=== PATIENT | male | born 1940 | race Caucasian/White ===

== ENCOUNTER 2025-04-19 21:07 | Inpatient (IN) | payer MEDICARE, BC, SELFPAY ==
[2025-04-19 19:02] VITALS: BP 156/61
[2025-04-19 19:34] LABS: Hematocrit 25.6 % (39.0-52.0); Hemoglobin 8.2 g/dL (13.0-18.0); Mean Corp Hgb Conc. 32.0 g/dL (33.0-37.0); Mean Corpuscular Volume 111.8 fL (80.0-94.0); Nucleated Red Blood Cells % 0.3 % (-); Platelet Count 298 10^3/uL (130-400); Red Cell Dist. Width 23.2 % (11.5-14.5)
[2025-04-19 19:36] LABS: ALT (SGPT) 12 U/L (0-50); AST (SGOT) 19 U/L (17-59); Albumin 4.4 g/dl (3.5-5.0); Alkaline Phosphatase 40 U/L (38-126); Blood Urea Nitrogen 54 mg/dl (9-20); Calcium 8.9 mg/dl (8.4-10.2); Carbon Dioxide 18 mmol/L (22-30); Chloride 115 mmol/L (98-107); Glucose 104 mg/dl (70-99); Potassium 4.7 mmol/L (3.5-5.1); Sodium 142 mmol/L (135-145); Total Protein 6.5 g/dl (6.3-8.2); eGFR 36.43
[2025-04-19 19:43] LABS: Anisocytosis 1+; Normal RBC Morphology No
[2025-04-19 19:44] LABS: Macrocytosis 2+; Microcytosis 1+; Ovalocytes 1+
--- NOTE | 2025-04-19 19:52 | ED.GENMED ---
History of Present Illness
General
Chief Complaint: Cardiac Symptoms
Source: patient and records
Exam Limitations: none
Time Seen by Provider: 04/19/25 19:44
Nursing documentation reviewed up to this point in time: agreed with
History of Present Illness
History of Present Illness:
84-year-old male with MDS, dual-chamber pacemaker 1 time lead replacement sent in due to malfunctioning pacemaker he has had some fatigue lower extremity edema, sees Dr. Lew and Dr. Do no fevers no chest pains
Past History
Past History
ED Past Medical History: Arrthythmia and Cancer
ED Past Surgical History: Cardiac
Social History
Tobacco: Non-smoker
Alcohol: Occasional
Drug: None
Personal:
Living: with family
Employment: Retired
Review of Systems
Review of Systems
All Other Systems: Not applicable
Constitutional: Denies fever or fatigue
EENT: Reports no symptoms
Respiratory: Reports no symptoms
Cardiac: Denies chest pain
ABD/GI: Reports no symptoms
: Reports no symptoms
Musculoskeletal: Reports edema and back pain
Skin: Reports no symptoms
Neurological: Reports no symptoms
Hematologic/Lymphatic: Reports no symptoms
Phy Exam
Physical Exam
Physical Exam:
Physical Exam
General: no apparent distress, not acutely ill
Neck: JVD
Heart: Bradycardia
Lungs: Faint crackle
Abdomen: Not tender
Neuro: alert and oriented. no focal neurological deficits
Skin: no rash
Psychiatric: well kept. interactive and cooperative
Extremities: Edema is present
Course
Orders/Labs/Results
Orders:
Orders
04/19/25 19:01
EKG [Electrocardiogram (*1)] Urgent
Reason for Study: Bradycardia / Tachycardia
04/19/25 19:02
EKG- Treatment ONCE
04/19/25 19:08
Complete Blood Count/With Diff Urgent
Comprehensive Metabolic Panel Urgent
Magnesium Urgent
Comment: ADD ON
NT-proBNP Urgent
Comment: ADD ON
Phosphorus Urgent
Comment: ADD ON
04/19/25 19:45
CR Chest - 2 Views Urgent
Comment:
Reason For Exam: waekness
04/19/25 19:52
Add On- LAB Urgent
Tests Added?: pBNP
04/19/25 20:09
Add On- LAB Urgent
Tests Added?: mag, phos
04/19/25 20:43
Admit/Transfer Patient As Directed
Co-Sign Provider:
Level of Care: Inpatient admission
Assign to:: IVU
Physician / Group: Adamaris Villegas
Diagnosis: pacemaker dysfunction, exertional dyspnea, mild BLLE edema
Reason for Hospitalization: pacemaker dysfunction, exertional dyspnea, mild BLLE edema
Expected length of stay greater than two midnights?: Yes
ELOS- Estimated Length of Stay in days: 3
I certify the patient meets the requirements for IP care: Yes
Magnesium Sulfate 4 Gram/100Ml [Magnesium Sulfate] 4 gram in 100 ml IV NOW
04/19/25 20:44
PRN Pain Medication Management As Directed
May give lesser potent ordered pain med per pt: Yes
preference::
Protocol:: Medication orders for pain may be administered in a
manner that supports deferring to patient preference
when the pt is:
- Requesting an ordered lesser potent pain medication.
Least to most potent pain medications are defined
as: acetaminophen < NSAID < tramadol < opioids
(morphine, oxycodone, hydromorphone).
- Requesting a lesser dose of the same medication IF
ORDERED.
- Requesting a less intrusive route of administration
if both routes are prescribed by the provider (PO <
IV).
04/19/25 20:45
Code Status As Directed
Resuscitation Status: Full Code
Abnormal Lab Results
04/19/25
19:08
RBC 2.29 L 10^6/uL
(4.70-6.10)
Hgb 8.2 L g/dL
(13.0-18.0)
Hct 25.6 L %
(39.0-52.0)
MCV 111.8 H fL
(80.0-94.0)
MCH 35.8 H pg
(27.0-31.0)
MCHC 32.0 L g/dL
(33.0-37.0)
RDW 23.2 H %
(11.5-14.5)
MPV 11.4 H fL
(7.4-10.4)
Abs Immat Gran (auto) 0.1 H 10^3/uL
(0-0.05)
Absolute Monos (auto) 0.8 H 10^3/uL
(0.1-0.6)
Immature Gran % 0.6 H %
(0-0.5)
Chloride 115 H mmol/L
(98-107)
Carbon Dioxide 18 L mmol/L
(22-30)
BUN 54 H mg/dl
(9-20)
Creatinine 1.8 H mg/dL
(0.7-1.3)
Glucose 104 H mg/dl
(70-99)
Magnesium 1.5 L mg/dl
(1.6-2.3)
04/19/25 19:08
04/19/25 19:08
Vital Signs
Initial and Last Documented VS:
Initial Vital Signs
Temp Pulse Resp BP Pulse Ox
98.5 F 55 18 156/61 98
04/19/25 19:02 04/19/25 19:02 04/19/25 19:02 04/19/25 19:02 04/19/25 19:02
Last Documented Vital Signs
Temp Pulse Resp BP Pulse Ox
98.5 F 41 18 186/60 98
04/19/25 19:02 04/19/25 22:00 04/19/25 22:00 04/19/25 21:28 04/19/25 21:45
*Radiology
Radiology exam reviewed: preliminary read by ED provider
*Pulse Oximetry
SaO2: 98
Oxygen Mode of Delivery: Room air
Patient hypoxic: no
*EKG
Interpreted by ED Provider?: Yes
Interpretation: abnormal
Comparison EKG: no comparison EKG present
Heart Rate: 50
Rate: bradycardiac
Rhythm: other (Intermittent AV block)
Ischemia: non-specific ST changes
*Senior Client Advisor Interpretation
Rate: bradycardiac
Interpretation: abnormal
Heart Rate: 52
Rhythm: other (Intermittent block)
*Critical Care Note
Total Time (30-74mins, 75-104mins- exclusive of procedures): 15
Data Reviewed
Review of Other/Old Records Reveals: Labs, Operative Reports and Discharge Summary
Source: patient and records
Update Note
Update Note:
815 interrogation report preliminary reviewed high impedance, reviewed with cardiology and hospitalist suspect he is having intermittent heart block, looks like his device is nonfunctioning will be admitted to a monitored bed, transcutaneous
pacemaker pads will be applied, will check chest x-ray and proBNP suspect he might be some heart failure,
ED Attending Note
-
Portions of this chart may have been created with voice recognition software.� Occasional wrong word or��sound alike� substitutions may have occurred due to the inherent limitations of voice recognition software.
Discharge Plan
Departure
Patient Disposition: Admit
Date of Disposition: 04/19/25
Time of Disposition: 20:17
Admit to: IVU
Presentation/result/management discussed w/ accepting MD/DO: Hospitalist
Patient with high blood pressure during this ER visit?: No
Condition: Fair
Covid-19: Not Applicable
Discharge Problem:
MDS (myelodysplastic syndrome), Pacemaker lead fracture, Acute on chronic anemia
Interventions
Interventions:
*Risk Screen - Suicide Last Done: 04/19/25 19:02
*General Assessment Last Done: 04/19/25 19:02
*Neglect/Abuse Screening Last Done: 04/19/25 19:02
*ED- Fall Risk Assessment Last Done: 04/19/25 19:02
*ED COVID-19 Vaccine History Last Done: 04/19/25 19:02
*ED Influenza Vaccine History Last Done: 04/19/25 19:02
*Nursing Disposition Last Done: 04/19/25 22:10
ED- Pulmonary Assessment Last Done: 04/19/25 19:58
ED- Cardiac Assessment Last Done: 04/19/25 19:57
Discharge Date and Time
Discharge Date/Time: 04/19/25 22:14
[2025-04-19 19:55] VITALS: BP 178/58
[2025-04-19 20:00] VITALS: BP 176/60
--- NOTE | 2025-04-19 20:00 | HPS.HSE ---
Addendum entered and electronically signed by Adamaris Villegas MD 04/19/25 21:49:
This is an addendum to H&P written by Dianna Car on 04/19/2025. �Patient seen and examined independently with RESEARCH & ANALYTICS MANAGER.
84-year-old male past medical history of symptomatic sinus bradycardia with intermittent high degree intraventricular block status post dual-chamber permanent pacemaker with Medtronic in 2018 status post atrial lead extraction and reimplantation of
atrial lead in 2020, myelodysplastic syndrome, hypertension, TIA, hemolytic anemia, GERD, former tobacco use, pulmonary nodule, presenting with malfunctioning pacemaker which was subsequently turned off.� �High impedance on interrogation. �
He has been having fatigue and lower extremity edema and shortness of breath with exertion for few weeks. Did receive blood transfusion recently for H� of 7.�
Vital signs show blood pressure to 178/58. �Heart rate 46-55.
EKG appears to show high-grade heart block.
Labs show hemoglobin 8.2 slightly worse than baseline. �Creatinine 1.8. �Bicarb of 18. �Cardiac BNP of 3000. Magnesium 1.5�
Patient with pacemaker dysfunction with bradycardia and high-grade heart block. �Pacemaker was interrogated which showed high impedance. �Pacing 72% of the time. �Cardiology notified and for now recommending ZOLL pads. NPO past midnight for
potential leadless pacemaker tomorrow.�
Patient also with evidence of congestive heart failure. �Chest x-ray pending. 40 IV lasix once.�
JOSE LUIS likely cardiorenal.
Replete magnesium.�
Original Note:
Family Physician
-
Family Physician:
Chief Complaint
-
pacemaker error
History of Present Illness
Patient is a 84-year-old male with past medical history significant for complete heart block with cardiac pace maker who presented to [facility] ED for evaluation at recommendation of cardiology RESEARCH & ANALYTICS MANAGER at [facility]. Patient report monitor for pace maker
alerted cardiology who sent him to [facility] for observation 1.5-2 weeks ago, no interventions at that time. Last week while in [place] pacer alerted again and he was instructed to go to a local hospital. He reported being at hospital with
medtronic rep for approximately 8 hours where they deactivated his pacer. He returned home and spoke with cardiology RESEARCH & ANALYTICS MANAGER today who requested he go to ED for evaluation and intervention to correct issues with pacemaker. Patient reports some mild edema
recently that he has utilized PRN Lasix for. Denies any further symptoms.
Medical History
Past Medical History
Past Medical History: Reports Other
Additional Past Medical History:
complete heart block status post pacemaker
myelodysplastic syndrome diagnosed in 2018 on darbepoetin
Past Surgical History: Reports Other
Additional Past Surgical History:
cardiac pacemaker
Social History
Tobacco: Former Smoker (quit 1983)
Alcohol: Daily (generally will drink 1 small bourbon daily )
Drug: None
Personal:
Living: Alone
Employment: Retired
Family History
Family History: Not pertinent
Allergies / Home Medications
Allergies reflects when Allergies were last updated in [facility].
Home Medications with original date entered in [facility]
Allergy/Medication List:
Allergies
Allergy/AdvReac Type Severity Reaction Status Date / Time
floxacillin Allergy SOB, [place] Verified 04/19/25 19:04
like he
was going
Home Medications
acetaminophen 500 mg tablet (Tylenol Extra Strength) 500 mg PO HSPRN PRN mild pain/sleep 12/11/20
celecoxib 200 mg capsule 200 mg PO DAILYPRN PRN mild pain 12/11/20
cholecalciferol (vitamin D3) 50 mcg (2,000 unit) tablet 2,000 units PO DAILY Supplement 12/11/20
darbepoetin nerissa in polysorbat 500 mcg/mL in polysorbate injection syringe (Aranesp) 500 mcg SC MONTHLY Anemia 12/11/20
furosemide 20 mg tablet 20 mg PO DAILYPRN PRN fluid 12/11/20
rosuvastatin 5 mg tablet 5 mg PO DAILY 12/11/20
zolpidem 10 mg tablet 10 mg PO HS Sleep 12/11/20
lansoprazole 15 mg capsule,delayed release 15 mg PO DAILY 04/19/25
losartan 50 mg tablet 50 mg PO DAILYPRN PRN blood pressure 04/19/25
Review of Systems
-
History Source: Patient
A 12 point ROS was completed and negative except as noted: Yes
Constitutional: Denies Fever or Chills
EENT: Denies Sore Throat
Respiratory: Denies Cough or Trouble Breathing
Cardiac: Denies Chest Pain, Diaphoresis, Palpitations or Syncope
Abdomen/GI: Denies Abdominal Pain, Nausea, Vomiting or Diarrhea
: Denies Dysuria, Frequency or Urgency
Musculoskeletal: Denies Joint Pain
Skin: Denies Rash
Neurological: Denies Dizzy, Headache, Weakness or Numbness
Endocrine: Denies Polyuria or Polydipsia
Hematologic/Lymphatic: Denies Bleeding
Physical Exam
Vital Signs
Vital Signs
Temp Pulse Resp BP Pulse Ox
98.5 F 46 15 178/58 98
04/19/25 19:02 04/19/25 19:55 04/19/25 19:55 04/19/25 19:55 04/19/25 19:55
Physical Exam
General: Well Developed, Well Nourished, No Apparent Distress, Comfortable, Conversant and Obese
HEENT: NormoCephalic, Moist mucous membranes, Atraumatic and Ears Appear Normal
Respiratory: Clear and Non Labored Respirations
Cardiac: S1/S2, Irregular Rhythm, Bradycardia and Peripheral Edema (mild intermittent BLLE edema ); No Murmur, Rub or Gallop
GI: Soft, Non Tender, Non Distended and Normal Bowel Sounds; No Organomegaly
Rectal: Deferred by Provider
Genito-urinary: Deferred by me
Musculoskeletal: No Clubbing and No Cyanosis
Skin: Warm and IV/Catheter Site
Neuro: Awake, AO x 3 and Nonfocal/grossly intact
Hematologic/Lymphatic: No Lymphadenopathy
Psych: Calm
Laboratory Results
-
04/19/25 19:08
04/19/25 19:08
Laboratory Results
Total Bilirubin 0.8 mg/dl (0.2-1.3) 04/19/25 19:08
AST 19 U/L (17-59) 04/19/25 19:08
ALT 12 U/L (0-50) 04/19/25 19:08
Alkaline Phosphatase 40 U/L (38-126) 04/19/25 19:08
Data Reviewed
-
Medical Tests (Nuc Med, Echo, EKG etc): Report Reviewed by me (EKG: appears to be complete heart block )
Lab Data: Labs Reviewed by me (hgb 8.2, hct 25.6, HCO3 18, BUN 54, Creat 1.8, eGFR 36.43, )
Impression/Plan
-
IMPRESSION/PLAN:
#complete heart block
#dysfunctioning pacemaker
EKG: appears to be complete heart block
- Admit to IVU
- Consult Cardiology
- NPO at midnight
#exertional dyspnea and mild edema likely 2/2 heart failure
pBNP 3060
- daily weights
- I & Os
- Lasix 40mg IV 1x now
#CKD?? vs JOSE LUIS? vs. cardiorenal??
HCO3 18, BUN 54, Creat 1.8, eGFR 36.43
- trend BMP
#hypomagnesemia
Mag 1.5
- replete
- trend electrolytes
#MDS
hgb 8.2, hct 25.6
reports recent blood transfusion for hgb 7
- monitor CBC
- continue out patient regimen
Code status: full code
DVT prophylaxis: heparin sq
[2025-04-19 20:30] LABS: Magnesium 1.5 mg/dl (1.6-2.3)
--- NOTE | 2025-04-19 20:52 | CON.CAR ---
Medical History
-
History of Present Illness:
84-year-old male with a history of Medtronic pacemaker implant 2018 for second-degree AV block, RA lead extraction and reimplantation 12/17/2020, PAF (per outpatient notes ow burden asymptomatic PAF and patient declined anticoagulation)
Hypercholesterolemia and GERD. Patient sent to [facility] as directed by Dr. Lew's office due concern regarding RV lead fracture and malfunction.. RV lead noted to have high impedance and felt not to be reliable. Patient with history
of intermittent pacer dependency. Patient was noted to have problems with his RV lead and high impedance as far back as 04/10/2025. He actually went to the ER and had a full interrogation at that time. Pacemaker seems to be capturing normally at
that time but it was recommended that RV lead be replaced and it was recommended that patient stay in the hospital but he left AGAINST MEDICAL ADVICE because he wanted to go to [place]. Patient ended up going to [place] and then was directed to go to
the ER based on interrogation he was evaluated there and then actually sent home. Then today again he was contacted by gisela Salguero office and directed to go to the ER. In the ER patient heart rates have been in the 40s and he is denying having
symptoms. He denies having syncope or near syncope denies chest pain or increased shortness of breath he has chronic lower extremity edema which he sometimes thinks is a little bit more. However he has not been weighing himself. He sometimes
feels fatigue but he says it is not all the time. Of note he has a history of myelodysplastic syndrome and recently had to have a transfusion when his hemoglobin was less than 7. He has had no bleeding issues. No recent infection or fever.
Patient has a history of conduction disease, symptomatic bradycardia related to heart block including previous history of Mobitz 1 secondary AV block. Patient had a Medtronic dual-chamber pacemaker. There was issue with RA lead fracture the
patient underwent extraction and reimplantation 12/17/2020
Review of remote interrogation 04/10/2025 abnormal functions with RV lead oversensing and intermittent RV loss of capture RV lead high impedance 3000 ohm
Past Medical History
Past Medical History: Other (Past medical history Medtronic pacemaker 2018 Fractured right atrial lead. Extraction RA lead and implantation of new lead. 12/17/2020 History of symptomatic bradycardia intermittent high degree AV block Anemia
Myelodysplastic syndrome)
Social History
Tobacco: Non-Smoker
Family History
Family History: Reviewed & Not Pertinent
Allergies / Home Medications
Allergy/AdvReac Type Severity Reaction Status Date / Time
floxacillin Allergy SOB, [place] Verified 04/19/25 19:04
like he
was going
�Medication �Instructions �Recorded �Confirmed �Type
acetaminophen 500 mg tablet 500 mg PO HSPRN PRN mild pain/sleep 12/11/20 04/19/25 History
(Tylenol Extra Strength)
celecoxib 200 mg capsule 200 mg PO DAILYPRN PRN mild pain 12/11/20 04/19/25 History
cholecalciferol (vitamin D3) 50 2,000 units PO DAILY Supplement 12/11/20 04/19/25 History
mcg (2,000 unit) tablet
darbepoetin nerissa in polysorbat 500 500 mcg SC MONTHLY Anemia 12/11/20 04/19/25 History
mcg/mL in polysorbate injection
syringe (Aranesp)
furosemide 20 mg tablet 20 mg PO DAILYPRN PRN fluid 12/11/20 04/19/25 History
rosuvastatin 5 mg tablet 5 mg PO DAILY 12/11/20 04/19/25 History
zolpidem 10 mg tablet 10 mg PO HS Sleep 12/11/20 04/19/25 History
lansoprazole 15 mg capsule,delayed 15 mg PO DAILY 04/19/25 04/19/25 History
release
losartan 50 mg tablet 50 mg PO DAILYPRN PRN blood 04/19/25 04/19/25 History
pressure
Review of Systems
-
All other systems: Negative unless noted
Physical Exam
Vital Signs
Temp Pulse Resp BP Pulse Ox
98.5 F 46 15 178/58 98
04/19/25 19:02 04/19/25 19:55 04/19/25 19:55 04/19/25 19:55 04/19/25 19:55
Lab Results
04/19/25 19:08
04/19/25 19:08
Gyr-V-Rukwqunixhr Pept 3060 pg/ml 04/19/25 19:08
Physical Exam
General: Well Developed and Well Nourished
HEENT: Normocephalic and Anicteric
Respiratory: Other (No wheezes rales or rhonchi)
Cardiac: Regular Rhythm
GI: Soft, Non Tender, Non Distended, Normal Bowel Sounds and Other (No masses)
Musculoskeletal: No Clubbing, No Cyanosis and No Edema (Moderate bilateral pitting edema of the lower extremities)
Skin: Warm
Neuro: Awake, Alert and Oriented
Psych: Calm
Impression / Plan
-
.
Pacemaker lead malfunction. RV lead fracture's is suspected . RV lead with high impedance and intermittent over sensing and loss of capture. Appears to have junctional escape rhythm. Underlying sinus rhythm with periods of CHB and intermittent
noncapture of RV lead. No long pauses and no symptoms reported. Based on interrogation history patient's had issues with the RV lead dating back to 04/06/2025.
- Monitor on telemetry.
- EP to evaluate regarding pacemaker revision. Possible implantation of leadless pacemaker.
- No clear need for temporary pacing at this time. But will continue to monitor closely.
- echo in AM
.
PAF. Low burden A-fib based on history. Patient has opted not to be on anticoagulation.
- Currently appears to be in sinus
.
JOSE LUIS. Previous admissions creatinines ranged from 1.2-1.5. Last labs are from 2020. Currently 1.8. Will monitor.
.
Anemia. MDS.. hb 8.2 Continue to monitor. Management as directed by primary team
.
Edema. Acute on chronic. Patient has a creatinine of 1.8. Unclear how this relates to his baseline. A bit higher than it was back in 2020. Patient may have component of heart failure related to combination of CKD
- IV lasix
Data Reviewed
-
EKG: Report Reviewed by me
Radiology: Report Reviewed by me
Medical Tests (Nuc Med, Echo etc): Report Reviewed by me
Labs: Discussed with Physician
[2025-04-19 21:28] VITALS: BP 186/60
[2025-04-19] MEDS: MAGNESIUM SULFATE 100 IV (21:49)
[2025-04-19 22:42] VITALS: BMI 32.1
[2025-04-19 22:54] VITALS: BP 178/53
[2025-04-19] MEDS: TYLENOL 650 MG PO (23:00)
[2025-04-19] MEDS: LASIX 40 MG IV (23:00)
[2025-04-19] MEDS: AMBIEN 10 MG PO (23:34)
[2025-04-19] MEDS: HEPARIN 5000 UNITS SC (23:34)
[2025-04-19 23:36] VITALS: BP 157/51
[2025-04-20] VITALS (15 sets, daily range): BP systolic 120–192; BP diastolic 38–98; BMI 31.6
--- NOTE | 2025-04-20 00:31 | PTCARENOTE ---
Received patient from ED via stretcher into room 2241. Pt has personal cane, and ambulated to bed w/ standby assist. SOB w/ exertion, denies any dizziness. Tele monitor applied, pacer not capturing at times. Rhythm either complete block vs A/AVpaced
w/ underlining SR. HR in the 30-70's at rest. Strips placed in chart. Patient c/o headache pain, Tylenol 650 mg administered at 23:00. Patient instructed to remain NPO at midnight. Oriented to room, call moore within reach. Patient brought in home
meds, medication list completed and sent to pharmacy.
[2025-04-20 03:22] LABS: Hematocrit 24.3 % (39.0-52.0); Hemoglobin 7.9 g/dL (13.0-18.0); Mean Corp Hgb Conc. 32.5 g/dL (33.0-37.0); Mean Corpuscular Volume 110.0 fL (80.0-94.0); Platelet Count 291 10^3/uL (130-400); Red Cell Dist. Width 22.9 % (11.5-14.5)
[2025-04-20 03:41] LABS: Blood Urea Nitrogen 52 mg/dl (9-20); Calcium 8.9 mg/dl (8.4-10.2); Carbon Dioxide 18 mmol/L (22-30); Chloride 115 mmol/L (98-107); Estimated Creatinine Clearance 33 ml/min; Glucose 94 mg/dl (70-99); Magnesium 2.5 mg/dl (1.6-2.3); Potassium 4.3 mmol/L (3.5-5.1); Sodium 143 mmol/L (135-145); eGFR 36.43
--- NOTE | 2025-04-20 07:57 | W.PN.CD ---
Today's Communication / Plan
-
HRs in the 40s . No long pauses. No new symptoms.
Patient to be evaluated by EP today ( Dr Espinoza or Dr Smith) to coordinate treatment plan for pacing system. Possible micra.
Continue with lasix and monitor weight and renal function
anemia to be addressed by primary team . Patient with MDS. Hb 7.9. Consider PRBC
Impression / Plan
-
.
Pacemaker lead malfunction. RV lead fracture's is suspected . RV lead with high impedance and intermittent over sensing and loss of capture. Appears to have junctional escape rhythm. Underlying sinus rhythm with periods of CHB and noncapture of
RV lead. No long pauses and no symptoms reported. Based on interrogation history patient's had issues with the RV lead dating back to 04/06/2025.
- Monitor on telemetry.
- EP to evaluate regarding pacemaker revision. Possible implantation of leadless pacemaker.
- No clear need for temporary pacing at this time. But will continue to monitor closely.
- echo in AM
.
PAF. Low burden A-fib based on history. Patient has opted not to be on anticoagulation.
- Currently appears to be on anticoagulation
.
JOSE LUIS. Previous admissions creatinines ranged from 1.2-1.5. Last labs are from 2020. Currently 1.8. Will monitor.
.
Anemia. MDS.. hb 8.2 on admit and now 7.9. Consider PRBC.
- Management as directed by primary team.
.
Edema. Acute on chronic. Patient has a creatinine of 1.8. Unclear how this relates to his baseline. A bit higher than it was back in 2020. Patient may have component of heart failure related to combination of CKD and chnage in rhythm
- IV lasix
- moniator weight and renal function
Physical Exam
Vital Signs/Labs
Vital Signs
Temp Pulse Resp BP Pulse Ox
98 F 43 20 135/38 94
04/20/25 06:49 04/20/25 07:00 04/20/25 06:49 04/20/25 06:49 04/20/25 06:49
04/19/25 04/20/25 04/21/25
06:59 06:59 06:59
Actual Weight 92.8 kg
04/20/25 03:00
04/20/25 03:00
Magnesium 2.5 mg/dl (1.6-2.3) H 04/20/25 03:00
04/19/25
19:08
Lch-U-Rlhjeilaevn Pept 3060
Physical Exam
Constitutional: No acute distress
Cardiovascular: Rhythm & rate is regular
Respiratory: Wheeze Absent and Rhonchi Absent
GI: Soft
Other: Other
moderate bilat edema
Data Reviewed
-
Date of Service: April 20, 2025
Medical Decision Making: Reviewed Test Results
Medical Tests (PFT, Pathology etc): Report Reviewed by me
Labs: Labs Reviewed by me
--- NOTE | 2025-04-20 08:00 | W.PN.UPDATE ---
Addendum entered and electronically signed by Basilio Espinoza MD 04/20/25 12:06:
Reviewed interrogation demonstrating noncapture in the right ventricular lead and the patient has complete heart block. I discussed with patient and his well with the son by phone plan for Micra implantation later today. I will plan to place a
temporary pacing wire given his AV conduction disease. I described the procedure in detail to both patient and son by phone including risks benefits and treatment alternatives. Will plan to stage the generator removal likely tomorrow.
Original Note:
Update Note
Progress Note Update
Patient seen at bedside with telemetry demonstrating sinus rhythm and a junctional escape rhythm. Atrial and ventricular pacing spikes are noted on telemetry without clear capture and inappropriate sensing is also noted. We will interrogate the
patient's device this morning to assess lead parameters and the current moment and plan a leadless pacemaker likely later this afternoon.
Will communicate with primary cardiology team.
Will interrogate the device this morning.
Please maintain n.p.o. status except sips of water and meds
Will follow closely with you
[2025-04-20] MEDS: CRESTOR 5 MG PO (08:31)
[2025-04-20] MEDS: PROTONIX 40 MG PO (08:31)
[2025-04-20] MEDS: HEPARIN SC ×3 (09:44→22:36)
--- NOTE | 2025-04-20 10:57 | CM ---
spoke to pt in room, he is prev indep, lives alone in a split level home with 2 steps to enter. he has a cane he uses. plan is for dc to home when medically stable.
--- NOTE | 2025-04-20 11:43 | W.PN.HOSP.TC ---
Today's Communication/Plan
-
For pacemaker implantation
Assessment / Plan
Assessment / Plan
Impression:
Pacemaker lead malfunction.
Conditions prior to admission:
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 Prior history of lead extraction.
Paroxysmal A-fib.
MDS with transfusion dependent anemia. According to patient not responsive to Reblozyl
CKD 3B
Chronic lower extremity edema with intermittent furosemide administration
Plan:
Schedule for leadless pacemaker implantation
Continue telemetry monitoring
Chronic lower extremity edema
Echo 12/31 with LVEF 55-60%. No significant valvular abnormalities.
Status post single dose of furosemide provided on admission per
Monitor volume status and renal function closely
MDS with transfusion dependent anemia
On on erythroid maturation agent STEAM PLANT OPERATOR with no significant improvement
Recent declining hemoglobin down to 7 requiring PRBC transfusion.
Continue monitoring closely
CKD stage IIIb.
Follow renal function after furosemide.
Patient reports intermittent losartan administration for limited BP. Currently off.
Anticipated Discharge: 24 - 48 hours
Subjective/Interval History
-
Date of Service: April 20, 2025
Objective Data
-
Labs:
Laboratory Results
04/20/25
03:00
WBC 10.1
Hgb 7.9 L
Hct 24.3 L
Plt Count 291
Sodium 143
Potassium 4.3
Chloride 115 H
Carbon Dioxide 18 L
BUN 52 H
Creatinine 1.8 H
Glucose 94
Calcium 8.9
Vital Signs:
Vital Signs
Temp Pulse Resp BP Pulse Ox
98 F 43 20 135/38 94
04/20/25 06:49 04/20/25 07:00 04/20/25 06:49 04/20/25 06:49 04/20/25 08:54
I&O
04/19/25 04/20/2504/21/25
06:59 06:59 06:59
Intake Total 340 / 340
Output Total 1375 / 1375
Balance -1035 / -1035
Physical Exam
-
General: Well Developed and No Apparent Distress
HEENT: Normocephalic, Atraumatic and Moist Mucous Membranes
Respiratory: Clear to Auscultation
Cardiac: Regular Rhythm and S1/S2; Negative Murmur, Rub or Gallop
GI: Soft, Nontender, Nondistended and Normal Bowel Sounds; Negative Organomegaly
Rectal: Deferred by Provider
Musculoskeletal: No Clubbing, No Cyanosis and No Edema
Skin: Negative Rash
Neuro: Nonfocal/Grossly Intact
--- NOTE | 2025-04-20 16:09 | ITS.CL.PACE ---
[facility] - Pacemaker Implant
Pacemaker Implant
Procedure Report:
Date of Procedure: April 20, 2025
Patient : 1940
Procedure: AV Micra implantation, temporary wire insertion, generator removal
Indication: Underlying complete heart block with RV lead fracture which is nonfunctional and cannot capture
Explant:
Pulse Generator: Medtronic; Model# W1 DR 01; SN: [id number] implanted May 11, 2019
Implant:
Medtronic AV Micra model number MC 2 AVR 1 serial number [id number] implanted today
Existing leads:
RA Lead: Medtronic; Model# 5076; SN: [id number] implanted 2020- The RA lead is functional see below parameters and was left capped and the left deltopectoral pocket
RV Lead: Medtronic; Model# 5076; SN: [id number] implanted 2018-the RV lead is nonfunctional and capped in the left deltopectoral pocket
Technique: A time out was performed. The procedure site was identified. Sedation was administered by the anesthesiology service with conscious sedation. The right and left femoral veins were accessed under direct ultrasound guidance. Both right
and left femoral and iliac systems were extremely tortuous. A quadripolar Divine catheter was placed from the left femoral vein into the RV apex with a threshold less than 1 V at 0.5 ms. This was utilized as a temporary pacemaker in case of
loss of the patient's narrow complex escape. This was removed at the end of the procedure.
We then serially dilated the right femoral vein to allow the 27 Vietnamese delivery sheath access to the right atrium. The right femoral iliac system was extremely tortuous and multiple intravenous dye shots were taken to delineate intravascular course
of the wires and sheaths. Approximately 30 cc of dye was delivered during the procedure. Utilizing elizabet wires at 0.35 diameter and series of short and long dilators up to 22 Vietnamese the isa shows 27 Vietnamese long sheath was able to navigate the
tortuous course and was brought to the right atrium under fluoroscopic guidance. We then brought the inner leadless pacemaker up into the outer sheath and the outer sheath was withdrawn into the IVC. We then navigated the delivery sheath into the
right ventricular apical septum and another intravenous dye shot demonstrated good apposition to the distal RV septum. We then delivered the AV Micra and once acceptable parameters and tug testing demonstrated stability in position and lead
parameters the suture was cut and withdrawn and sheaths and catheters were removed from the right atrium and vasculature. Giiipj-cv-[id number] sutures to bilateral femoral venous access sites and manual pressure was held for 30 minutes to the right
femoral venous access site. The patient did not demonstrate any hemodynamic instability during the procedure.
We then turned our attention to the generator removal. The patient was prepped and draped in the usual fashion. Local anesthetic was applied to the left prepectoral subcutaneous tissue. The chronic 3 inch incision was made 2.5 inches below the
left clavicle. A subcutaneous pocket was created with blunt and sharp dissection and hemostasis controlled with Bovie cautery. The leads were identified and removed from the device and capped in the pocket. The chronic generator was removed from
the field. The pocket was irrigated with antibiotic solution. Of note the right atrial lead is functioning with parameters as below, the right ventricular lead is nonfunctioning. The patient was left with an underlying escape at 35 bpm in terms of
underlying rhythm. Both the atrial and ventricular leads were capped and the left deltopectoral pocket. The incision was closed in 2 layers with absorbable suture. The estimated blood loss was minimal. There were no complications.
Fluoroscopy: 14.7 minutes and 259 mGy
Lead Analysis:
RA lead: P: 2 mV; Threshold: 0.75 V @ 0.5 ms; Impedance: 304 ohms.
RV lead: R: Nonfunctioning
Final Programming: VDD 50-105
Conclusion: Uncomplicated Medtronic AV Micra implant, temporary wire insertion and removal, and removal of dual-chamber pacemaker generator
Recommendation: Routine right and left femoral venous access care and left deltopectoral wound care.
--- NOTE | 2025-04-20 17:02 | W.PN.UPDATE ---
Update Note
Progress Note Update
Please see full EPS report for details of leadless pacemaker implantation and removal of the patient's dual-chamber pacemaker generator. He has appropriate AV synchrony in VDD mode with excellent lead parameters on the leadless pacemaker. We have
ordered groin precautions and serial dosing of antibiotics for his left deltopectoral groove incision and the right and left femoral venous access sites. He received 35 cc of dye so would repeat hemoglobin and creatinine 04/21/25 in the morning and
would consider discharge tomorrow if he remains stable.
Communicated findings of procedure with the patient's son as well as his device team at [facility].
[2025-04-20] MEDS: TYLENOL 650 MG PO ×2 (18:44→23:36)
--- NOTE | 2025-04-20 19:26 | PTCARENOTE ---
Pt returned from EP lab post pacemaker removal from left anterior chest, dressing dry and intact, no sign of bleeding or hematoma. Right femoral vein site with saturated hemostasis pad (not new drainage), left femoral vein site with dry and intact
dressing, no sign of bleeding or hematoma in either groin. Figure of eight sutures present. Pt c/o right groin discomfort, given tylenol and encouraged to splint his groin when coughing. Pt on face mask at 8L on arrival to IVU, now 96% on 2L. Pt
with gurgly productive cough initially, oriented to place only but soon improved. Telemetry shows Vent. paced rhythm.
--- NOTE | 2025-04-20 23:12 | PTCARENOTE ---
Addendum entered by Rebel Dumont RN 04/20/25 23:50:
no signs of oozing from R groin site; dressing CDI. L groin site intact.
Original Note:
removed b/l sutures at approx 2200. patient complains of burning after dressings removed- b/l groins red/appear excoriated. small skin tear at the R groin noted. sat patient up, ate dinner. patient continues to cough-educated patient to apply
pressure on R groin. when rechecking groins- R groin oozing. site marked. checked again and dressing saturated. R groin dressing changed and applied pressure dressing. L groin site stable. + pulses. L chest site CDI. Vpaced on tele. reviewed plan of
care with patient and verbalized understanding. call moore within reach. makes needs known.
[2025-04-20] MEDS: AMBIEN 10 MG PO (23:35)
[2025-04-20] MEDS: ANCEF 5 IV (23:36)
[2025-04-21] VITALS (8 sets, daily range): BP systolic 137–160; BP diastolic 56–69; PULSE 70; BMI 31.5
[2025-04-21 02:58] LABS: Hematocrit 23.6 % (39.0-52.0); Hemoglobin 7.8 g/dL (13.0-18.0); Mean Corp Hgb Conc. 33.1 g/dL (33.0-37.0); Mean Corpuscular Volume 110.3 fL (80.0-94.0); Nucleated Red Blood Cells % 0.4 % (-); Platelet Count 278 10^3/uL (130-400); Red Cell Dist. Width 22.0 % (11.5-14.5)
[2025-04-21 03:45] LABS: Blood Urea Nitrogen 54 mg/dl (9-20); Calcium 8.8 mg/dl (8.4-10.2); Carbon Dioxide 19 mmol/L (22-30); Chloride 113 mmol/L (98-107); Estimated Creatinine Clearance 32 ml/min; Glucose 165 mg/dl (70-99); Magnesium 2.1 mg/dl (1.6-2.3); Potassium 5.0 mmol/L (3.5-5.1); Sodium 141 mmol/L (135-145); eGFR 36.43
[2025-04-21] MEDS: ANCEF 5 IV (06:10)
--- NOTE | 2025-04-21 07:57 | W.PN.CD ---
Addendum entered and electronically signed by Basilio Espinoza MD 04/21/25 10:33:
I met with the patient this morning and discussed details of the procedure last evening. We discussed the Micra implant and the generator removal and appropriate follow-up. He is hemostatic and bilateral femoral venous sites without active
bleeding or hematoma. History of mild dysplastic syndrome with relatively stable hemoglobin.
He should have follow-up with his outpatient french folding machine operator Dr. Basilio Lew at [facility] cardiology and he is followed in the device clinic there. I did communicate findings of procedure to both Dr. Lew and Neelima
Kyra VALLADARES who will be performing outpatient follow-up.
Original Note:
Today's Communication / Plan
-
IV lasix once
Micra appears to be fxning appropriately
cont home meds
We will sign off pls call with questions/concerns. He knows to follow up with home french folding machine operator.
Impression / Plan
-
.
Pacemaker lead malfunction. RV lead fracture's is suspected . RV lead with high impedance and intermittent over sensing and loss of capture. Appears to have junctional escape rhythm. Underlying sinus rhythm with periods of CHB and noncapture of
RV lead. No long pauses and no symptoms reported. Based on interrogation history patient's had issues with the RV lead dating back to 04/06/2025.
- Monitor on telemetry.
- s/p Micra fxning appropriately
- echo in AM
.
PAF. Low burden A-fib based on history. Patient has opted not to be on anticoagulation.
.
JOSE LUIS. Previous admissions creatinines ranged from 1.2-1.5. Last labs are from 2020. Currently 1.8. Will monitor.
.
Anemia. MDS.. hb 8.2 on admit and now 7.9. Consider PRBC.
- Management as directed by primary team.
.
Edema. Acute on chronic. Patient has a creatinine of 1.8. Unclear how this relates to his baseline. A bit higher than it was back in 2020. Patient may have component of heart failure related to combination of CKD and chnage in rhythm
- IV lasix today
- PO PRN
Physical Exam
Vital Signs/Labs
Vital Signs
Temp Pulse Resp BP Pulse Ox
97.3 F 65 20 138/58 96
04/21/25 07:18 04/21/25 06:00 04/21/25 07:18 04/21/25 02:40 04/21/25 07:18
04/20/25 04/21/25 04/22/25
06:59 06:59 06:59
Actual Weight 201 lb 11.567 oz 200 lb 13.458 oz
04/21/25 02:44
04/21/25 02:44
Magnesium 2.1 mg/dl (1.6-2.3) 04/21/25 02:44
04/19/25
19:08
[id number] Pept 3060
Physical Exam
Constitutional: No acute distress and Comfortable
EENT: Anicteric
Cardiovascular: Rhythm & rate is regular and Pedal edema present (trace)
Respiratory: Respiratory effort normal and Lungs clear to auscul.
GI: Soft
Neuro/Psych: AO x 3
Data Reviewed
-
Date of Service: April 21, 2025
EKG: Tracing Personally Visualized and interpreted (paced)
Echo: Report Reviewed by me
Labs: Labs Reviewed by me
[2025-04-21] MEDS: TYLENOL 650 MG PO ×3 (09:16→22:37)
[2025-04-21] MEDS: CRESTOR 5 MG PO (09:16)
[2025-04-21] MEDS: PROTONIX 40 MG PO (09:16)
[2025-04-21] MEDS: HEPARIN 5000 UNITS SC ×2 (09:18→17:51)
[2025-04-21] MEDS: LASIX 40 MG IV (09:36)
--- NOTE | 2025-04-21 11:12 | CM ---
Addendum entered by Ana M Napoles RN 04/21/25 12:11:
Family also set up [facility] to assist patient at discharge and provide 6 hours a day care until VN came come out to see the patient.
Original Note:
Chart reviewed. Patient is independent of ADLS, lives alone in a split level house, [address] MIL[address], has a SPC. Patient is interested in VN. Referral sent to [facility]. Plan is for the patient to return home with [facility]. CM to follow
--- NOTE | 2025-04-21 12:34 | W.DS.TRANS ---
DC Summary - Cnc Grinder
-
Discharge Instructions:
Sleep Apnea Risk High
Discharge Diagnosis/Procedures Micra pacer implant
Driving Restrictions No driving for 24 hours
Instructions:
Stand-Alone Forms: DC Instructions- Cath/EP Lab
Changes to Home Medications: No
Discharge Medications:
DC Medications w/original date entered in [facility]
acetaminophen 500 mg tablet (Tylenol Extra Strength) 500 mg PO HSPRN PRN mild pain/sleep 12/11/20
celecoxib 200 mg capsule 200 mg PO DAILYPRN PRN mild pain 12/11/20
cholecalciferol (vitamin D3) 50 mcg (2,000 unit) tablet 2,000 units PO DAILY Supplement 12/11/20
darbepoetin nerissa in polysorbat 500 mcg/mL in polysorbate injection syringe (Aranesp) 500 mcg SC MONTHLY Anemia 12/11/20
furosemide 20 mg tablet 20 mg PO DAILYPRN PRN fluid 12/11/20
rosuvastatin 5 mg tablet 5 mg PO DAILY High Cholesterol 12/11/20
zolpidem 10 mg tablet 10 mg PO HS Sleep 12/11/20
lansoprazole 15 mg capsule,delayed release 15 mg PO DAILY gerd 04/19/25
losartan 50 mg tablet 50 mg PO DAILYPRN PRN blood pressure 04/19/25
Home Medication Changes
Pending Results: No
--- NOTE | 2025-04-21 15:43 | W.PN.HOSP.TC ---
Today's Communication/Plan
-
Monitor volume status.
PT evaluation.
Discharge planning
Assessment / Plan
Assessment / Plan
Impression:
Pacemaker lead malfunction.
Conditions prior to admission:
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 Prior history of lead extraction.
Paroxysmal A-fib.
MDS with transfusion dependent anemia. According to patient not responsive to Reblozyl
CKD 3B
Chronic lower extremity edema with intermittent furosemide administration
Plan:
Status post leadless pacemaker implantation on 04/20
Chronic lower extremity edema
Echo 12/31 with LVEF 55-60%. No significant valvular abnormalities.
Stable respiratory status with no evidence for decompensated CHF
Additional dose of Lasix provided on admission and on 04/21
Monitor volume status and renal function closely
MDS with transfusion dependent anemia
On on erythroid maturation agent CYBER CRIME INVESTIGATOR with no significant improvement
Recent declining hemoglobin down to 7 requiring PRBC transfusion.
Continue monitoring closely
CKD stage IIIb.
Follow renal function after furosemide.
Patient reports intermittent losartan administration for limited BP. Currently off.
Anticipated Discharge: Within 24 hours
Subjective/Interval History
-
Date of Service: April 21, 2025
Objective Data
-
Labs:
Laboratory Results
04/21/25
02:44
Sodium 141
Potassium 5.0
Chloride 113 H
Carbon Dioxide 19 L
BUN 54 H
Creatinine 1.8 H
Glucose 165 H
Calcium 8.8
Vital Signs:
Vital Signs
Temp Pulse Resp BP Pulse Ox
97.5 F 64 18 137/59 98
04/21/25 14:59 04/21/25 15:00 04/21/25 14:59 04/21/25 14:59 04/21/25 14:59
I&O
04/20/25 04/21/25 04/22/25
06:59 06:59 06:59
Intake Total 340 / 340 650 / 650
Output Total 1375 / 1375 1525 / 1525 550 / 550
Balance -1035 / -1035 -875 / -875 -550 / -550
Physical Exam
-
General: Well Developed and No Apparent Distress
HEENT: Normocephalic, Atraumatic and Moist Mucous Membranes
Respiratory: Clear to Auscultation
Cardiac: Regular Rhythm and S1/S2; Negative Murmur, Rub or Gallop
GI: Soft, Nontender, Nondistended and Normal Bowel Sounds; Negative Organomegaly
Rectal: Deferred by Provider
Musculoskeletal: No Clubbing, No Cyanosis and No Edema
Skin: Negative Rash
Neuro: Nonfocal/Grossly Intact
--- NOTE | 2025-04-21 18:06 | PTCARENOTE ---
Pt stated not ready to be home today. Pt OOB to chair with assistance. Diuresed well after IV lasix. Pt seen by Drs. Espinoza and Darryl. Bilateral groin sites with dry and intact dressings, no sign of bleeding or hematoma.Tekemetry shows vent.
paced rhythm. Discharge planning for and private care.
[2025-04-21] MEDS: AMBIEN 10 MG PO (22:37)
[2025-04-21] MEDS: HEPARIN SC (23:38)
--- NOTE | 2025-04-22 00:02 | PTCARENOTE ---
assumed care of patient at the change of shift. AAOx3. Vpaced on tele 60s-70s. bp stable. L chest site CDI. b/l groin sites stable. mild lower back pain-Tylenol given, see mar. educated patient to inform Rn with any changes. urinating in the
urinal-yellow urine. call moore within reach.
[2025-04-22 03:28] VITALS: BP 144/50
[2025-04-22 06:00] VITALS: BMI 31.5
[2025-04-22 07:38] VITALS: BP 159/76
[2025-04-22] MEDS: CRESTOR 5 MG PO (09:26)
[2025-04-22] MEDS: PROTONIX 40 MG PO (09:26)
[2025-04-22] MEDS: HEPARIN SC (09:27)
--- NOTE | 2025-04-22 10:35 | W.PN.HOSP.TC ---
Today's Communication/Plan
-
Ordered compression stockings
Continue with as needed Lasix after discharge
Follow-up with PCP in 1 week
Assessment / Plan
Assessment / Plan
Impression:
Pacemaker lead malfunction.
Conditions prior to admission:
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 Prior history of lead extraction.
Paroxysmal A-fib.
MDS with transfusion dependent anemia. According to patient not responsive to Reblozyl
CKD 3B
Chronic lower extremity edema with intermittent furosemide administration
Plan:
Status post leadless pacemaker implantation on 04/20
Chronic lower extremity edema
Echo 12/31 with LVEF 55-60%. No significant valvular abnormalities.
Stable respiratory status with no evidence for decompensated CHF
Additional dose of Lasix provided on admission and on 04/21
Monitor volume status and renal function closely
Discharge with compression stockings and as needed Lasix
MDS with transfusion dependent anemia
On on erythroid maturation agent HOME DEMONSTRATOR with no significant improvement
Recent declining hemoglobin down to 7 requiring PRBC transfusion.
Continue monitoring closely
CKD stage IIIb.
Follow renal function after furosemide.
Patient reports intermittent losartan administration for limited BP. Currently off.
Discharge with home care today
Anticipated Discharge: Today
Subjective/Interval History
-
Date of Service: April 22, 2025
Seen and examined at the bedside. No acute overnight. AFVSS this morning
Patient states she feels very well, eager for discharge so he can make it in time for his 'visiting [place]'
Denies any new complaints today. States he no longer has compression stockings for his legs
Objective Data
-
Vital Signs:
Vital Signs
Temp Pulse Resp BP Pulse Ox
98.6 F 71 18 144/50 97
04/22/25 07:38 04/22/25 07:38 04/22/25 07:38 04/22/25 03:28 04/22/25 07:38
I&O
04/21/25 04/22/25 04/23/25
06:59 06:59 06:59
Intake Total 650 / 650 400 / 400
Output Total 1525 / 1525 2500 / 2500
Balance -875 / -875 -2099 / -2099
Review of Systems
-
History Source: Patient
All other systems: Reviewed and negative
Physical Exam
-
General: Well Developed, Well Nourished and No Apparent Distress
HEENT: Normocephalic, Atraumatic and Moist Mucous Membranes
Respiratory: Clear to Auscultation and Non Labored Respirations; Negative Accessory Resp Muscle Use
Cardiac: Regular Rhythm and S1/S2; Negative Murmur, Rub or Gallop
GI: Soft, Nontender, Nondistended and Normal Bowel Sounds
Musculoskeletal: No Clubbing, No Cyanosis and Other (1+ pitting edema bilaterally)
Skin: Warm and Dry; Negative Rash
Neuro: AO x 3, Nonfocal/Grossly Intact and Central Nerve's Intact
Data Reviewed
-
Labs: Labs Reviewed by me, Discussed with Nurse and Discussed with Patient
[2025-04-22 11:04] VITALS: BP 153/64
--- NOTE | 2025-04-22 13:10 | PTCARENOTE ---
iv and tele removed. pt offers no complaints at this time. pt verbalized understanding of medication. pt left with belongings from room, medications from pharmacy. pt left via wheelchair.
--- NOTE | 2025-04-22 14:21 | W.DCSUMMARY ---
Discharge Summary
Discharge Data
Date of Admission: 04/19/25
Date of Discharge: 04/22/25
Total time spent discharging patient (in min): 31
-
Pending Results: No
Hospital Course
Discharging physician: Mayco Pfeiffer DO
Discharge disposition: Home care
Primary Hospital diagnoses:
Pacemaker lead malfunction (fractured RV lead)
Placement of Micra device
Lower extremity edema
Mild JOSE LUIS
Chronic discharge diagnoses:
Third-degree AVB s/p PPM
Myelodysplastic syndrome on Aranesp
Paroxysmal AF not on AC
CKD 3B
Chronic venous insufficiency
Hospital course:
84-year-old male that presented to the hospital due to malfunctioning pacemaker that first occurred while he was in [place]. Was seen at local hospital there where they deactivated his pacemaker and he returned home, saw cardiology REAL ESTATE ADMINISTRATOR who told him to
come into the ED to correct his pacemaker issues. Also complained of lower extremity edema. Received 1 dose of IV Lasix in the hospital. Renal function stabilized. Was evaluated by cardiology who implanted leadless pacemaker (Micra device) due
to fractured RV lead. Subsequently was monitored and pacemaker functioned properly. Did have lower extremity edema due to chronic venous insufficiency. At time of discharge recommended to continue his as needed Lasix regimen and prescribed
compression stockings.
Consultations:
General cardiology: Lele Tao MD
Interventional cardiology: Basilio Espinoza MD
Imaging studies: N/A
Procedures:
Micra leadless pacemaker implantation (04/20/2025)
Device Implanted: Medtronic AV Micra implant
Attending provider: Basilio Espinoza MD
Description: leadless pacemaker implantation and removal of the patient's dual-chamber pacemaker generator. He has appropriate AV synchrony in VDD mode with excellent lead parameters on the leadless pacemaker. We have ordered groin precautions and
serial dosing of antibiotics for his left deltopectoral groove incision and the right and left femoral venous access sites. He received 35 cc of dye so would repeat hemoglobin and creatinine 04/21/25 in the morning and would consider discharge
tomorrow if he remains stable. Communicated findings of procedure with the patient's son as well as his device team at [facility].
Follow-up:
Family doctor within 1 week
Tin Roofer within 1 to 2 weeks
Discharge Plan
-
Patient Disposition: Home (Routine Discharge)
Discharge Diagnosis/Procedures: Edema
Micra pacer implant
Condition: Fair
Diet: No added salt
Driving Restrictions: No driving for 24 hours
Bathing Restrictions: None
Blood Work: Follow-up with family doctor to repeat BMP and CBC with differential
Specialty Instructions: Weigh Daily- Call MD for wt gain/loss 3 lbs overnight/5 lbs in 1 week
Stand Alone Forms: DC Instructions- Cath/EP Lab
Referrals:
[facility] [Outside]
Referral Note:
Saji Lundy MD [Family Provider, Internal Medicine]
Additional Discharge Medication Instructions: No medication changes made
Use compression stockings for lower extremity edema
Prescriptions:
New
(DME) compression socks, medium Misc
See Rx Instructions .Route Qty: 2 0RF
Rx Instructions:
As directed
Continued
celecoxib 200 MG capsule
200 mg PO DAILYPRN PRN (Reason: mild pain)
acetaminophen [Tylenol Extra Strength] 500 MG tablet
500 mg PO HSPRN PRN (Reason: mild pain/sleep)
furosemide 20 MG tablet
20 mg PO DAILYPRN PRN (Reason: fluid)
zolpidem 10 MG tablet
10 mg PO HS
rosuvastatin 5 MG tablet
5 mg PO DAILY
Aranesp (in polysorbate) 500 MCG/ML syringe
500 mcg SC MONTHLY
cholecalciferol (vitamin D3) 2,000 UNITS tablet
2,000 units PO DAILY
losartan 50 mg Tablet
50 mg PO DAILYPRN PRN (Reason: blood pressure)
lansoprazole 15 mg Capsule,Delayed Release(Dr/Ec)
15 mg PO DAILY
Discharge Orders:
Discharge Patient (As Directed); Ordered 04/22/25
Ordered By: Mayco Pfeiffer
Care Plan Goals
Care Plan Goals:
Problem: Readiness for enhanced knowledge related to diagnosis and treatment plan
Goal: Understand your diagnosis and treatment plan needs, including medications if applicable.
Instructions: Know your diagnosis, underlying causes and treatment plan options, including medications if applicable. Consult with your health care team to learn about your diagnosis and treatment plan, including medications if applicable.
Discharge Date and Time
Discharge Date/Time: 04/22/25 13:14
Print Language: LITHUANIAN
== END 2025-04-22 13:14 | disposition home health service (06) | DRG 229 ==
LOC: IVU 21:07
PROVIDERS: Emergency Medicine; Internal Medicine; Internal Medicine Cardiovascular Disease; Nurse Practitioner Family; ADMITTING PHYSICIAN Hospitalist; ATTENDING PHYSICIAN Internal Medicine; CONSULT PHYSICIAN Internal Medicine Cardiovascular Disease; EMERGENCY PHYSICIAN Emergency Medicine; FAMILY PHYSICIAN Internal Medicine
PROC: 4B02XSZ Measurement of Cardiac Pacemaker, External Approach (ICD-10-PCS; 2025-04-19)
PROC: 0JPT0PZ Removal of Cardiac Rhythm Related Device from Trunk Subcutaneous Tissue and Fascia, Open Approach (ICD-10-PCS; 2025-04-20)
PROC: 02HK3NZ Insertion of Intracardiac Pacemaker into Right Ventricle, Percutaneous Approach (ICD-10-PCS; 2025-04-20)
DX: T82.110A Breakdown (mechanical) of cardiac electrode, initial encounter (principal); Z00.6 Encounter for examination for normal comparison and control in clinical research program; D58.9 Hereditary hemolytic anemia, unspecified; I44.2 Atrioventricular block, complete; N17.9 Acute kidney failure, unspecified; I13.0 Hypertensive heart and chronic kidney disease with heart failure and stage 1 through stage 4 chronic kidney disease, or unspecified chronic kidney disease; D46.9 Myelodysplastic syndrome, unspecified; I50.9 Heart failure, unspecified; I48.0 Paroxysmal atrial fibrillation; K21.9 Gastro-esophageal reflux disease without esophagitis; R91.1 Solitary pulmonary nodule; N18.32 Chronic kidney disease, stage 3b; I87.2 Venous insufficiency (chronic) (peripheral); I45.4 Nonspecific intraventricular block; E83.42 Hypomagnesemia; Y71.2 Prosthetic and other implants, materials and accessory cardiovascular devices associated with adverse incidents; Y83.1 Surgical operation with implant of artificial internal device as the cause of abnormal reaction of the patient, or of later complication, without mention of misadventure at the time of the procedure; Y92.9 Unspecified place or not applicable; Z60.2 Problems related to living alone; Z87.891 Personal history of nicotine dependence; Z88.1 Allergy status to other antibiotic agents; Z86.73 Personal history of transient ischemic attack (TIA), and cerebral infarction without residual deficits; Z95.0 Presence of cardiac pacemaker; Z79.899 Other long term (current) drug therapy
CPT/HCPCS: 33233; 33274; 71045; 71046; 80048; 80053; 83735; 83880; 84100; 85025; 85027; 93005; 97163; 99285; C1730; C1769; C1786; C1894; Q9967

== ENCOUNTER → 2025-05-22 12:05 | Outpatient (REF) | payer MEDICARE, BC, SELFPAY | LOC: HWRCS 12:05 | PROVIDERS: ATTENDING PHYSICIAN Internal Medicine Cardiovascular Disease; FAMILY PHYSICIAN Internal Medicine | DX: I44.39 Other atrioventricular block (principal); Z95.0 Presence of cardiac pacemaker; I10 Essential (primary) hypertension; I44.1 Atrioventricular block, second degree; I48.0 Paroxysmal atrial fibrillation; R07.9 Chest pain, unspecified | CPT/HCPCS: 78452; 93017; A9500; J2785 ==